=== PATIENT | female | born 1960 | race Caucasian/White ===

== ENCOUNTER 2016-10-08 14:28 | Emergency (ER) | payer OTHER ==
[~2016-10-08] VITALS: Ht 152.4 cm; Wt 77.3 kg
[~2016-10-08 14:28] MED LIST: ALBU8.5H3; AZIT250T94 PO; CARB15DR48 BOTH EARS; FLUT9.9S NASAL; HYDR-902 PO; MOME13HF IH; NAPR-260 PO; PRED20TA PO
[2016-10-08] MEDS ORDERED: DEXAMETHASONE 10 MG/ML 1 ML INJ IM STA (15:17)
[2016-10-08] MEDS ORDERED: ALBUTEROL 0.083% (NEB) 2.5 MG/3 ML AMP NEB STA (15:17)
[2016-10-08] MEDS ORDERED: IPRATROPIUM (NEB) 0.5 MG/2.5 ML AMP NEB STA (15:17)
--- NOTE | 2016-10-08 15:59 | ERD ---
ER Documentation Chief Complaint Date/Time DATE: 10/08/16 TIME: 15:57 Chief Complaint HPI This is a 56-year-old female with a history of asthma presenting to the emergency department complaining of asthma exacerbation for the past couple days. Patient states that she has albuterol nebulizing treatment and pro-air at home and she used that about a couple hours ago and she still has not had full relief. Patient denies any fever, chest pain, nasal congestion. She has not taken any medication ROS All systems reviewed and are negative except as per history of present illness. Medications Home Meds Active Scripts Naproxen* (Naprosyn*) 500 Mg Tablet, 500 MG PO BID Y for PAIN AND/OR INFLAMMATION, #30 TAB Prov:MIKE LARA PA-C 07/03/16 Hydrocodone/Acetaminophen ([place] 10-325 Tablet) 1 Each Tablet, 1 TAB PO Q6H Y for PAIN, #20 TAB Prov:MIKE LARA PA-C 07/03/16 Prednisone* (Prednisone*) 20 Mg Tab, 40 MG PO DAILY for 4 Days, TAB Start 05/30/2016 Prov:BRIANA PEACOCK MD 05/29/16 Azithromycin* (Zithromax*) 250 Mg Tablet, 250 MG PO .VadimPACK DIRECTED, #6 TAB TAKE 500 MG (2 TABS) THE FIRST DAY THEN 250 MG (1 TAB) DAYS 2-5 Prov:BRIANA PEACOCK MD 05/29/16 Prednisone* (Prednisone*) 20 Mg Tab, 40 MG PO DAILY for 4 Days, TAB Prov:SETH DÍAZ DO 12/08/15 Prednisone* (Prednisone*) 20 Mg Tab, 40 MG PO DAILY for 5 Days, TAB Prov:ALDA CHARLES 11/24/15 Fluticasone Propionate (Flonase Allergy Relief) 9.9 Ml [place].susp, 1 SPRAY NASAL BID, #1 BOTTLE TO EACH NOSTRIL Prov:CEZAR SMITH MD 10/28/15 Carbamide Peroxide* (Debrox*) 6.5% - 15 Ml Drops, 10 DROP BOTH EARS BID for 7 Days, BOTTLE Prov:CEZAR SMITH MD 10/28/15 Prednisone* (Prednisone*) 20 Mg Tab, 40 MG PO DAILY for 4 Days, TAB Prov:BRIANA PEACOCK MD 10/25/15 Azithromycin* (Zithromax*) 250 Mg Tablet, 250 MG PO .VadimPAMAXX DIRECTED, #6 TAB TAKE 500 MG (2 TABS) THE FIRST DAY THEN 250 MG (1 TAB) DAYS 2-5 Prov:BRIANA PEACOCK MD 10/25/15 Reported Medications Mometasone-Formoterol (Dulera) 13 Gm Hfa.aer.ad, 13 GM IH BID 11/05/13 Albuterol Sulfate* (Proair HFA*) 8.5 Gm Hfa.aer.ad 03/21/10 Allergies Allergies: Coded Allergies: No Known Drug Allergy (Verified Allergy, Mild, 07/03/16) PMhx/Soc History of Surgery: No Anesthesia Reaction: No Hx Neurological Disorder: No Hx Respiratory Disorders: Yes (ASTHMA ) Hx Cardiac Disorders: Yes (HTN, high cholesterol) Hx Psychiatric Problems: No Hx Miscellaneous Medical Probl: Yes (right knee surgery) Hx Alcohol Use: Yes (OCASSIONAL ) Hx Substance Use: No Hx Tobacco Use: No Physical Exam Vitals Vital Signs Date Time Temp Pulse Resp B/P Pulse Ox O2 Delivery O2 Flow Rate FiO2 10/08/16 15:33 65 20 97 21 Physical Exam GENERAL: WD/WN, in no apparent distress, non-toxic appearing HENT: NC/AT, bilateral TM has good cone of light EYES: Conjunctiva normal NECK: Supple PULM: Inspiratory and expiratory wheezing. No rales, crackles, or rhonchi heard. No tripod position, normal labored breathing, no stridor, no evidence of using accessory muscles. CV: Good capillary refill, good S1 and S2, no murmurs appreciated GI: Non-distended, no guarding BACK: No masses. EXT: No clubbing, cyanosis, or edema. NEURO: Moves on all fours SKIN: intact, no cyanosis. PSYCH: Normal mood Results 24 hrs Current Medications Medications (Trade) Dose Ordered Sig/Beatrice Route PRN Reason Start Time Stop Time Status Last Admin Dose Admin Albuterol (Proventil 0.083% (Neb)) 7.5 mg ONCE STAT NEB 10/08/16 15:17 10/08/16 15:19 DC 10/08/16 15:33 Ipratropium [place] (Atrovent 0.02% (Neb)) 0.5 mg ONCE STAT NEB 10/08/16 15:17 10/08/16 15:19 DC 10/08/16 15:33 Dexamethasone (Decadron) 10 mg ONCE STAT IM 10/08/16 15:17 10/08/16 15:19 DC 10/08/16 15:44 Procedures/MDM 56-year-old female with a history of asthma patient presents to the ER with asthma exacerbation, low suspicion for status asthmaticus, pneumonia, inhaled foreign body, or other life threatening pulmonary emergencies due to physical examination. RT was consulted in the ED, breathing treatment albuterol 5 mg continuous was administered. Patient was saturating well on room air and wheezing improved. Decadron IM was administered. Hemodynamically stable. Patient was saturating well on room air and shortness of breath improved. discussed to have a close follow-up with a primary care physician, discussed to return to the ED if not improving as expected or if condition worsens. Patient understood and agreed with this plan. Departure Diagnosis: Primary Impression: Asthma exacerbation Condition: Stable Patient Instructions: Asthma Medications Additional Instructions: FOLLOW UP WITH YOUR PRIMARY CARE PHYSICIAN TOMORROW.Return to this facility if you are not improving as expected. Take all medicines as directed. Return to this facility if you are not improving as expected. MIKE LARA PA-C Oct 08, 2016 15:59
[2016-10-08] MEDS ORDERED: PRED20TA PO (16:19)
[2016-10-08 16:29] VITALS: Ht 152.4 cm; Wt 77.3 kg
[2016-10-08 16:32] VITALS: BP 164/80; PULSE 96; RESP 16; TEMP 97.2
== END 2016-10-08 16:39 | disposition home or self-care (01) ==
LOC: FTE 14:28
DX: J45.901 Unspecified asthma with (acute) exacerbation (principal); I10 Essential (primary) hypertension
CPT/HCPCS: 94644; 96372; J1100; Z7502; Z7610

== ENCOUNTER 2017-08-04 07:32 | Emergency (ER) | END 2017-08-04 11:11 | disposition home or self-care (01) ==

== ENCOUNTER 2018-03-02 12:18 | Emergency (ER) | END 2018-03-02 13:23 | disposition left against medical advice (07) ==